=== PATIENT | male | born 1975 | race African-American/Black ===

== ENCOUNTER 2017-05-11 17:11 | Emergency (ER) | payer SELFPAY ==
[~2017-05-11] VITALS: Ht 180.3 cm; Wt 113.4 kg
[2017-05-11 17:54] VITALS: BP 168/96
[2017-05-11 18:28] VITALS: BP 168/96
--- NOTE | 2017-05-11 18:28 | Emergency Room Report ---
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 denies history of carpal tunnel syndrome The patient took Aleve one hour ago with improvement He denies any recent heavy workout or exercise regimen No fever chills No history of diabetes in himself or family No history of blood clots in himself or family he had physical and lab work done 6 months ago which he said was normal Allergies: Coded Allergies: No Known Allergies (Unverified , 05/11/17) Patient History Past Medical History: none Past Surgical History: none Pertinent Family History: none Social History: Denies: smoking, alcohol use, drug use Immunizations: UTD Reviewed Nursing Documentation: PMH: Agreed, PSxH: Agreed Nursing Documentation-PMH Past Medical History: No Stated History Review of Systems All Other Systems: negative except mentioned in HPI Physical Exam Vital Signs Date Time Temp Pulse Resp B/P (MAP) Pulse Ox O2 Delivery O2 Flow Rate FiO2 05/11/17 17:41 98.1 76 20 168/96 97 Room Air Sp02 EP Interpretation: reviewed, normal General Appearance: normal inspection, well appearing, no apparent distress, alert, GCS 15, non-toxic Head: normocephalic, atraumatic Eyes: bilateral eye PERRL, bilateral eye EOMI ENT: normal ENT inspection, hearing grossly normal, normal pharynx, no angioedema, normal voice, TMs + canals normal, uvula midline, moist mucus membranes Neck: normal inspection, full range of motion, supple, thyroid normal, no meningismus, no bony tend Respiratory: normal inspection, lungs clear, normal breath sounds, no rhonchi, no respiratory distress, no retraction, no accessory muscle use, no wheezing, speaking full sentences Cardiovascular #1: regular rate, rhythm, no edema, no JVD, normal capillary refill Gastrointestinal: normal inspection, normal bowel sounds, non tender, soft, no mass, no peritonitis, non-distended, no guarding, no hernia, no pulsatile mass Genitourinary: no CVA tenderness Musculoskeletal: normal inspection, back normal, normal range of motion, no calf tenderness, pelvis stable, Lisandra's Sign negative Neurologic: normal inspection, alert, oriented x3, responsive, pharmaceutical botanist III-XII nml as tested, motor strength/tone normal, cerebellar normal, normal gait, speech normal Psychiatric: normal inspection, judgement/insight normal, mood/affect normal, no suicidal/homicidal ideation, no delusions Skin: normal inspection, normal color, no rash Lymphatic: normal inspection, no adenopathy Medical Decision Making Diagnostic Impression: Primary Impression: Myalgia ER Course Patient with 2 weeks of intermittent myalgias to upper extremities Signs stable afebrile Atraumatic No compartment syndrome on exam low suspicion for upper extremity DVT given intermediate nature of symptoms and resolution with Aleve Possibly related to occupation I advised bloodwork including check CK for possible rhabdo our patient did not want to wait for blood work because girlfriend is and within in the ER Patient wants to come back in the morning to check blood work yo M F with DDX: Plan: Obtain labs, ua, ucx, ucg, CXR, EKG ER course: Patient has remained stable during ED stay. Disposition: Patient is to be discharged to home. Return in ER in morning for blood work Strict return precautions discussed with patient such as fever, chills, worsening/severe pain, nausea, vomiting, which may indicate severe illness. Patient verbalizes understanding and agrees with plan. Please note that this Emergency Department Report was dictated using [employer] physician technology software, occasionally this can lead to erroneous entry secondary to interpretation by the dictation equipment Last Vital Signs Date Time Temp Pulse Resp B/P (MAP) Pulse Ox O2 Delivery O2 Flow Rate FiO2 05/11/17 17:54 98.1 20 168/96 97 Room Air 05/11/17 17:41 76 Status: improved Disposition: HOME, SELF-CARE Condition: Improved Additional Instructions: - Please take your alleve 3x a day with food as needed - Apply ice to areas of pain RETURN TO ER IN MORNING FOR CBC/CMP/CK to [facility] for rhabdo THALIA MORALES M.D. May 11, 2017 18:28
== END 2017-05-11 18:30 | disposition home or self-care (01) ==
LOC: EMR 18:28
DX: M79.1 Myalgia (principal); M79.602 Pain in left arm; M79.601 Pain in right arm; R20.0 Anesthesia of skin

== ENCOUNTER 2017-06-09 11:18 | Emergency (ER) | payer BC ==
[~2017-06-09] VITALS: Ht 182.9 cm; Wt 108.9 kg
--- NOTE | 2017-06-09 12:21 | Emergency Room Report ---
History of Present Illness General Chief Complaint: Pain Source: Patient Present Illness HPI 41-year-old male presents to the emergency department complaining of progressive 8/10 in severity dull constant ache in the left anterior thigh towards the midline. Patient denies trauma or fall he denies recent strenuous activities he denies fevers, chills, swollen or tender joints. Patient denies testicular pain or swelling. Denies back pain or tenderness. Denies erythema, swelling, or increased temperature to palpation. Denies numbness tingling or loss of sensation or gross motor movements of the extremities, incontinence of bowel or bladder. Denies CP, Palpitations, LOC, AMS, dizziness, Changes in Vision, Sensation, paresthesias, or a sudden severe headache. Allergies: Coded Allergies: No Known Allergies (Unverified , 05/11/17) Patient History Past Medical History: see triage record Past Surgical History: none Pertinent Family History: none Immunizations: UTD Reviewed Nursing Documentation: PMH: Agreed, PSxH: Agreed Nursing Documentation-PMH Past Medical History: No Stated History Review of Systems All Other Systems: negative except mentioned in HPI Physical Exam Vital Signs Date Time Temp Pulse Resp B/P (MAP) Pulse Ox O2 Delivery O2 Flow Rate FiO2 06/09/17 11:31 97.9 78 20 97 Room Air Sp02 EP Interpretation: reviewed, normal General Appearance: no apparent distress, alert, GCS 15, non-toxic Head: normocephalic, atraumatic Eyes: bilateral eye normal inspection, bilateral eye PERRL ENT: hearing grossly normal, normal voice Neck: full range of motion Respiratory: chest non-tender, lungs clear, normal breath sounds, speaking full sentences Cardiovascular #1: regular rate, rhythm, no edema Cardiovascular #2: 2+ dorsalis pedis (R), 2+ dorsalis pedis (L) Musculoskeletal: back normal, gait/station normal, normal range of motion, tender - TTP to the anterior thigh, no bony ttp, FROM of knee and hip, no erythema, no swelling, equal pulses bilaterally post. tibial. Neurologic: alert, oriented x3, responsive, motor strength/tone normal, sensory intact, normal gait, speech normal, grossly normal Psychiatric: judgement/insight normal Skin: normal color, no rash, warm/dry, well hydrated Lymphatic: no adenopathy Medical Decision Making PA Attestation Dr. Mckenzie is my supervising Physician whom patient management has been discussed with. Diagnostic Impression: Primary Impression: Myalgia ER Course 41-year-old male presents to the emergency department complaining of progressive 8/10 in severity dull constant ache in the left anterior thigh towards the midline. Patient denies trauma or fall he denies recent strenuous activities he denies fevers, chills, swollen or tender joints. Patient denies testicular pain or swelling. Denies back pain or tenderness. Denies erythema, swelling, or increased temperature to palpation. Denies numbness tingling or loss of sensation or gross motor movements of the extremities, incontinence of bowel or bladder. Denies CP, Palpitations, LOC, AMS, dizziness, Changes in Vision, Sensation, paresthesias, or a sudden severe headache. Ddx considered but are not limited to Fracture, dislocation, contusion, Sprain/ Strain/Spasm, Cellulitis, myositis just to name a few. Vital signs: are WNL, pt. is afebrile H&PE are most consistent with myalgia- no acute bony ttp, no obvious deformities or evidence of infection. ORDERS: - none required at this time, no suspicion of fractures/dislocations upon PE. ED INTERVENTIONS: - D/w pt. that I do not suspect that his current presentation and symptoms represent an emergent condition at this time. Discussed that he will be treated conservatively with anti-inflammatories. D/w pt. that he is stable for close outpatient follow-up with his PCP within the next 3-5 days. D/w pt. to return to the ED with new or worsening of his current symptoms. DISCHARGE: At this time pt. is stable for d/c to home. Will provide printed patient care instructions, and any necessary prescriptions. Care plan and follow up instructions have been discussed with the patient prior to discharge. Last Vital Signs Date Time Temp Pulse Resp B/P (MAP) Pulse Ox O2 Delivery O2 Flow Rate FiO2 06/09/17 11:45 97.9 20 97 Room Air 06/09/17 11:31 78 Disposition: HOME, SELF-CARE Condition: Stable Scripts Ibuprofen* (MOTRIN*) 800 Mg Tablet 800 MG ORAL THREE TIMES A DAY, #21 TAB 0 Refills Prov: Galina Perdue.Andrew 06/09/17 Patient Instructions: Muscle Pain, Adult Additional Instructions: Take medications as directed. Follow up with a Primary Care Provider in 3-5 days, Labs and or MRI may be indicated if your symptoms have not resolved. --Please review list of primary care clinics, if you do not already have a primary care provider Return sooner to ED if new symptoms occur, or current symptoms become worse. - Please note that this Emergency Department Report was dictated using [employer] assembler technology software, occasionally this can lead to erroneous entry secondary to interpretation by the dictation equipment. Galina Perdue Jun 09, 2017 12:21
[2017-06-09] MEDS ORDERED: IBUPROFEN800 MG ORAL (12:22)
[2017-06-09 13:09] VITALS: BP 120/80
== END 2017-06-09 12:45 | disposition home or self-care (01) ==
LOC: EMR 12:17
DX: M79.1 Myalgia (principal); M79.652 Pain in left thigh
CPT/HCPCS: 99283